=== PATIENT | male | born 1930 | race Caucasian/White ===

== ENCOUNTER → 2016-04-19 | Outpatient (CLI) | payer MEDICARE, BC ==
[2016-04-19 08:39] LABS: Anion Gap 10 mmol/L; Blood Urea Nitrogen 24 mg/dL (9-20); Calcium 10.4 mg/dL (8.4-10.2); Carbon Dioxide 26 mmol/L (22-30); Chloride 107 mmol/L (98-107); Glucose 121 mg/dL (74-99); Non-African American GFR(MDRD) 60 (>60 ml/min/1.73 sqM); Potassium 4.6 mmol/L (3.5-5.1); Sodium 143 mmol/L (137-145)
[2016-04-19 11:09] LABS: Hemoglobin A1C 6.1 % (4.2-6.1)
== END | disposition home or self-care (01) ==
LOC: LABWHC1 06:48
PROVIDERS: ATTEND Internal Medicine Endocrinology, Diabetes & Metabolism
DX: E11.9 Type 2 diabetes mellitus without complications (principal)
CPT/HCPCS: 36415; 80048; 83036

== ENCOUNTER → 2016-11-06 | Outpatient (CLI) | payer MEDICARE, BC | END | disposition home or self-care (01) | LOC: LABWHC1 11:06 | PROVIDERS: ATTEND Internal Medicine Endocrinology, Diabetes & Metabolism | DX: R53.83 Other fatigue (principal) | CPT/HCPCS: 36415; 83002; 84403; 84443 ==

== ENCOUNTER → 2017-06-13 | Outpatient (CLI) | payer MEDICARE, BC ==
[2017-06-13 07:45] LABS: Albumin 4.3 g/dL (3.5-5.0); Calcium 10.1 mg/dL (8.4-10.2); Potassium 4.1 mmol/L (3.5-5.1); Total Bilirubin 0.7 mg/dL (0.2-1.3)
[2017-06-13 12:02] LABS: Hemoglobin A1C 5.8 % (4.0-6.0)
== END | disposition home or self-care (01) ==
LOC: LABWHC1 06:37
PROVIDERS: ATTEND Internal Medicine Endocrinology, Diabetes & Metabolism
DX: E11.65 Type 2 diabetes mellitus with hyperglycemia (principal)
CPT/HCPCS: 36415; 80053; 80061; 82043; 82570; 83036

== ENCOUNTER → 2017-06-21 | Outpatient (CLI) | payer MEDICARE, BC | END | disposition home or self-care (01) | LOC: LABWHC1 13:56 | PROVIDERS: ATTEND Internal Medicine Endocrinology, Diabetes & Metabolism | DX: E11.65 Type 2 diabetes mellitus with hyperglycemia (principal) | CPT/HCPCS: 36415; 84403 ==

== ENCOUNTER → 2017-10-05 | Outpatient (CLI) | payer MEDICARE, BC ==
[2017-10-05 13:57] LABS: HCT 47.8 % (39.0-53.0); HGB 15.9 gm/dL (13.0-17.5); MCH 32.2 pg (25.0-35.0); MCHC 33.3 g/dL (31.0-37.0); MCV 96.8 fL (80.0-100.0); Mean Platelet Volume 7.7; Platelet Count 164 k/uL (150-450); RBC 4.93 m/uL (4.30-5.90); RDW 13.7 % (11.5-15.5); WBC 8.2 k/uL (3.8-10.6)
== END | disposition home or self-care (01) ==
LOC: LABWHC1 13:32
PROVIDERS: ATTEND Internal Medicine Endocrinology, Diabetes & Metabolism
DX: E29.1 Testicular hypofunction (principal)
CPT/HCPCS: 36415; 84153; 84403; 85027

== ENCOUNTER 2017-10-09 10:20 | Emergency (ER) | payer MEDICARE, BC ==
[2017-10-09 10:25] VITALS: BP 139/77; PULSE 52; RESP 16; TEMP 98
--- NOTE | 2017-10-09 11:28 | ED ---
Skin/Abscess/FB HPI <Clay Lew - Last Filed: 10/09/17 11:31> - General Source: patient, RN notes reviewed Mode of arrival: ambulatory Limitations: no limitations <Subha Kirk - Last Filed: 10/09/17 11:59> - General Chief complaint: Skin/Abscess/Foreign Body Stated complaint: Spider bite on hand Time Seen by Provider: 10/09/17 10:35 - History of Present Illness Initial comments: This is an 87-year-old male who presents to the emergency department with chief complaint of spider bite. Patient states that on Sunday afternoon he saw a large black spider on his right hand. Patient states that he hit the spider but does not recall it biting him. He states that on Sunday he noticed tenderness, redness and swelling to the right hand. He said that at that point he realized the spider had indeed bit him. Patient states that today after taking a shower he noticed that there was a black lesion on his right hand. Patient denies any recent fevers or chills, chest pain shortness of breath, abdominal pain, nausea or vomiting. He denies any significant pain. (Subha Kirk) - Related Data Home Medications Medication Instructions Recorded Confirmed Furosemide [Lasix] 40 mg PO DAILY 03/29/15 10/09/17 amLODIPine BESYLATE [Norvasc] 10 mg PO DAILY 03/29/15 10/09/17 glipiZIDE [Glucotrol] 5 mg PO BID 03/29/15 10/09/17 Losartan Potassium 100 mg PO DAILY 10/09/17 10/09/17 Potassium Chloride ER [K-Dur 10] 10 meq PO DAILY 10/09/17 10/09/17 Previous Rx's Medication Instructions Recorded Cephalexin [Keflex] 500 mg PO Q12HR #14 cap 10/09/17 Sulfamethox-Tmp 800-160Mg [Bactrim 1 tab PO Q12HR #14 tab 10/09/17 DS 800-160 mg] Allergies Allergy/AdvReac Type Severity Reaction Status Date / Time No Known Allergies Allergy Verified 10/09/17 11:15 Review of Systems ROS Other: All systems not noted in ROS Statement are negative. <Clay Lew - Last Filed: 10/09/17 11:31> ROS Other: All systems not noted in ROS Statement are negative. <Subha Kirk - Last Filed: 10/09/17 11:59> ROS Statement: Those systems with pertinent positive or pertinent negative responses have been documented in the HPI. Past Medical History Past Medical History: Cancer, Diabetes Mellitus, Hypertension Additional Past Medical History / Comment(s): Skin CA History of Any Multi-Drug Resistant Organisms: None Reported Past Surgical History: Hernia Repair Additional Past Surgical History / Comment(s): Vasc. surg R leg; Hammer toes Past Anesthesia/Blood Transfusion Reactions: No Reported Reaction, Blood Transfusion Reaction Past Psychological History: No Psychological Hx Reported Smoking Status: Never smoker Past Alcohol Use History: None Reported Past Drug Use History: None Reported - Past Family History Mother Family Medical History: No Reported History <Subha Kirk - Last Filed: 10/09/17 11:59> General Exam <VipinClay - Last Filed: 10/09/17 11:31> Limitations: no limitations <Subha Kirk Hernandez - Last Filed: 10/09/17 11:59> - General Exam Comments Initial Comments: General: Awake and alert, well-developed; in no apparent distress. 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 HEENT: Head atraumatic, normocephalic. Pupils are equal, round and reactive to light. Extraocular movements intact. Oropharynx moist without erythema or exudate. Neck: Supple. Normal ROM. Cardiovascular: Regular rate and rhythm. No murmurs, rubs or gallops. Chest symmetrical. Respiratory: Lungs clear to auscultation bilaterally. No wheezes, rales or rhonchi. Normal respiratory effort with no use of accessory muscles. Musculoskeletal: Normal range of motion of the right hand. Dorsal aspect of the right hand has 2+ pitting edema and erythema. There is a black nodule or like lesion with surrounding ecchymosis at the webbing between his fingers 1 and 2 on the right hand. Sensation is intact. Radial pulses are 2+ equal and palpable bilaterally. Skin: Zap, warm and dry without rashes or lesions. Neurological: Alert and oriented x3. CN II-XII grossly intact. Speech is fluent and answers are appropriate. No focal neuro deficits. Psychiatric: Normal mood and affect. No overt signs of depression or anxiety noted. (Subha Kirk) Course <VipinClay - Last Filed: 10/09/17 11:31> <Subha Kirk - Last Filed: 10/09/17 11:59> Vital Signs 10/09/17 10:23 Temperature 98 F Pulse Rate 52 L Respiratory 16 Rate Blood Pressure 139/77 O2 Sat by Pulse 96 Oximetry - Reevaluation(s) Reevaluation #1: 10/09/17 11:31 PA supervision: I personally saw and examined the patient. I reviewed and agree with the PA findings including all diagnostic interpretations and treatment plans is written unless otherwise stated. (Clay Lew) Medical Decision Making <VipinClay - Last Filed: 10/09/17 11:31> <Subha Kirk - Last Filed: 10/09/17 11:59> - Medical Decision Making This is an 87-year-old male who presents to the emergency department with chief complaint of spider bite. Patient reports being bit by spider on Sunday and noticing swelling and redness of the right hand on Sunday. Patient reports noticing a black spot on his hand after taking a shower this morning. On physical examination, there is pitting edema and erythema of the dorsal aspect of the right hand with a nodular-like black lesion between digits 1 and 2. Case was discussed with attending physician, Dr. Lew who also evaluated the patient. Recommended attempting to drain. A 25-gauge needle was inserted into the nodular lesion and only blood was extracted. Patient tolerated well without complication. He will be started on both Keflex and Bactrim. Vitals are stable and he is in no acute distress. He will be discharged home at this time. He is in agreement with plan and voices understanding. All questions were answered. Return parameters were discussed. (Subha Kirk) Disposition <VipinClay - Last Filed: 10/09/17 11:31> Is patient prescribed a controlled substance at d/c from ED?: No Time of Disposition: 11:57 <Subha Kirk - Last Filed: 10/09/17 11:59> Clinical Impression: Cellulitis Disposition: HOME SELF-CARE Condition: Good Instructions: Cellulitis (ED) Additional Instructions: Please take medications as prescribed. Please follow up with primary care provider within 1-2 days. Return to emergency department if symptoms should worsen or any concerns arise. Prescriptions: Cephalexin [Keflex] 500 mg PO Q12HR #14 cap Sulfamethox-Tmp 800-160Mg [Bactrim DS 800-160 mg] 1 tab PO Q12HR #14 tab Referrals: [facility],Clinic [Primary Care Provider] - 1-2 days
[2017-10-09] MEDS ORDERED: CEPHALEXIN 500MG STARTER PACK 4 CAP BTL PO STA (11:53)
[2017-10-09] MEDS ORDERED: CEPHALEXIN 500 MG CAP PO STA (11:53)
[2017-10-09] MEDS ORDERED: SULFAMETH-TMP DS STARTER PACK 2 TAB BTL PO STA (11:54)
[2017-10-09] MEDS ORDERED: SULFAMETHOX-TMP 800-160MG 1 EACH TAB PO STA (11:54)
== END 2017-10-09 12:05 | disposition home or self-care (01) ==
LOC: EC 10:20
DX: L03.113 Cellulitis of right upper limb (principal); E11.9 Type 2 diabetes mellitus without complications; I10 Essential (primary) hypertension; Z85.828 Personal history of other malignant neoplasm of skin; Z79.84 Long term (current) use of oral hypoglycemic drugs; Z79.899 Other long term (current) drug therapy
CPT/HCPCS: 10160; 99283

== ENCOUNTER → 2018-03-05 | Outpatient (CLI) | payer MEDICARE, BC | END | disposition home or self-care (01) | LOC: LABWHC1 14:56 | PROVIDERS: ATTEND Internal Medicine Endocrinology, Diabetes & Metabolism | DX: E29.1 Testicular hypofunction (principal) | CPT/HCPCS: 36415; 83002; 84403 ==

== ENCOUNTER → 2018-06-19 | Outpatient (CLI) | payer MEDICARE, BC | END | disposition home or self-care (01) | LOC: LABWHC1 15:20 | PROVIDERS: ATTEND Internal Medicine Endocrinology, Diabetes & Metabolism | DX: E29.1 Testicular hypofunction (principal) | CPT/HCPCS: 36415; 84403 ==

== ENCOUNTER → 2018-06-21 | Outpatient (CLI) | payer MEDICARE, BC ==
[2018-06-21 11:19] LABS: Anion Gap 7.3 mmol/L (4.00-12.00); Calcium 9.8 mg/dL (8.7-10.3); Carbon Dioxide 27.7 mmol/L (21.6-31.8); Potassium 4.4 mmol/L (3.5-5.5)
== END ==
LOC: LABWHC1 06:43
PROVIDERS: ATTEND Internal Medicine Cardiovascular Disease
DX: N19 Unspecified kidney failure (principal); E11.9 Type 2 diabetes mellitus without complications; I10 Essential (primary) hypertension
CPT/HCPCS: 36415; 80048

== ENCOUNTER → 2019-02-26 | Outpatient (CLI) | payer MEDICARE, BC ==
[2019-02-26 16:34] LABS: African American GFR (CKD) 57.3 (60.0-200.0); Albumin 4.2 g/dL (3.80-4.90); Albumin/Globulin Ratio 2.21 (1.60-3.17); Anion Gap 8.7 mmol/L (4.00-12.00); BUN/Creat Ratio 19.23 Ratio (12.00-20.00); Calcium 9.9 mg/dL (8.7-10.3); Carbon Dioxide 25.3 mmol/L (21.6-31.8); Chol/HDL Ratio 3.83; Globulin 1.9 g/dL (1.6-3.3); LDL Cholesterol,Calculated 96.2 mg/dL (0.0-131.0); Non-African American GFR(CKD) 49.4 (60.0-200.0); Potassium 4.5 mmol/L (3.5-5.5); Total Bilirubin 0.8 mg/dL (0.3-1.2); Total Protein 6.1 g/dL (6.2-8.2); VLDL Calculation 22.8 mg/dL (5.00-40.00)
[2019-02-26 19:02] LABS: Urine Creatinine 65.9 mg/dL
[2019-02-26 21:25] LABS: Hemoglobin A1C 6.3 % (4.0-6.0)
== END | disposition home or self-care (01) ==
LOC: LABWHC1 09:14
PROVIDERS: ATTEND Internal Medicine Endocrinology, Diabetes & Metabolism
DX: E11.9 Type 2 diabetes mellitus without complications (principal)
CPT/HCPCS: 36415; 80053; 80061; 82043; 82570; 83036; 84403; 84443

== ENCOUNTER → 2019-12-03 | Outpatient (CLI) | payer MEDICARE, BC ==
[2019-12-03 20:21] LABS: Urine Creatinine 52.6 mg/dL
[2019-12-03 21:31] LABS: African American GFR (CKD) 62.6 (60.0-200.0); Albumin 4.4 g/dL (3.80-4.90); Albumin/Globulin Ratio 1.91 (1.60-3.17); Anion Gap 7.4 mmol/L (4.00-12.00); Calcium 10.7 mg/dL (8.7-10.3); Carbon Dioxide 25.6 mmol/L (21.6-31.8); Chol/HDL Ratio 3.88; Globulin 2.3 g/dL (1.6-3.3); LDL Cholesterol,Calculated 103.2 mg/dL (0.0-131.0); Potassium 4.9 mmol/L (3.5-5.5); Total Bilirubin 0.6 mg/dL (0.3-1.2); Total Protein 6.7 g/dL (6.2-8.2); VLDL Calculation 20.8 mg/dL (5.00-40.00)
== END | disposition home or self-care (01) ==
LOC: LABWHC1 11:40
PROVIDERS: ATTEND Internal Medicine Endocrinology, Diabetes & Metabolism
DX: E11.40 Type 2 diabetes mellitus with diabetic neuropathy, unspecified (principal)
CPT/HCPCS: 36415; 80053; 80061; 82043; 82570; 84403; 84443

== ENCOUNTER → 2021-02-21 | Outpatient (CLI) | payer MEDICARE, BC ==
[2021-02-21 20:37] LABS: ALT 23 U/L (10-49); AST 20 U/L (14-35); African American GFR (CKD) 67.6 (60.0-200.0); Albumin 3.8 g/dL (3.8-4.9); Albumin/Globulin Ratio 1.75 (1.60-3.17); Alkaline Phosphatase 79 U/L (41-126); BUN/Creat Ratio 18.75 Ratio (12.00-20.00); Calcium 9.9 mg/dL (8.7-10.3); Carbon Dioxide 22.3 mmol/L (20.0-27.5); Chloride 110 mmol/L (96-109); Chol/HDL Ratio 4.19 Ratio; Globulin 2.2 g/dL (1.6-3.3); Glucose 122 mg/dL (70-110); LDL Cholesterol,Calculated 122.7 mg/dL (0.0-131.0); Non-African American GFR(CKD) 58.3 (60.0-200.0); Potassium 4.4 mmol/L (3.5-5.5); Sodium 142 mmol/L (135-145)
== END | disposition home or self-care (01) ==
LOC: LABWHC1 10:20
PROVIDERS: ATTEND Internal Medicine Endocrinology, Diabetes & Metabolism
DX: E11.65 Type 2 diabetes mellitus with hyperglycemia (principal)
CPT/HCPCS: 36415; 80053; 80061; 82043; 82570; 83036; 84443

== ENCOUNTER 2021-08-06 08:40 | Emergency (ER) | payer MEDICARE, BC ==
[2021-08-06 08:47] VITALS: BP 129/78; PULSE 76; RESP 16; TEMP 98.3
--- NOTE | 2021-08-06 08:57 | ED ---
General Adult HPI - General Chief complaint: Extremity Injury, Lower Stated complaint: hip pain Time Seen by Provider: 08/06/21 08:42 Source: patient Mode of arrival: ambulatory Limitations: no limitations - History of Present Illness Initial comments: Dictation was produced using [employer] dictation software. please excuse any grammatical, word or spelling errors. Chief Complaint: 89-year-old male presents emergency department for right-sided hip pain History of Present Illness: Patient is an 89-year-old male who presents to emergency department for right-sided hip pain. Patient states he fell 3 months ago carrying a heavy object. At that time he felt his left knee gave out and he fell on his right side. For the past 3 months since a fall he's been having some mild pain towards his upper right hip. Patient states that he has been able to ambulate though not as well secondary to the pain. States that he kept putting office and finally decided today came to the emergency department to be evaluated. Denies any focal paresthesias to his right lower extremity The ROS documented in this emergency department record has been reviewed and confirmed by me. Those systems with pertinent positive or negative responses have been documented in the HPI. All other systems are other negative and/or noncontributory. PHYSICAL EXAM: General Impression: Alert and oriented x3, not in acute distress HEENT: Normocephalic atraumatic, extra-ocular movements intact, pupils equal and reactive to light bilaterally, mucous membranes moist. Cardiovascular: Heart regular rate and rhythm Chest: Able to complete full sentences, no retractions, no tachypnea Abdomen: abdomen soft, non-tender, non-distended, no organomegaly Musculoskeletal: Pulses present and equal in all extremities, no peripheral edema, no gait abnormalities Motor: no focal deficits noted Neurological: CN II-XII grossly intact, no focal motor or sensory deficits noted Skin: Intact with no visualized rashes Psych: Normal affect and mood ED course: 89-year-old male presents to the emergency department for hip pain that he's been expressing for the last 3 months. Vital signs upon arrival are within acceptable limits. Hip x-ray shows no acute fracture dislocation. There does appear to be some joint space narrowing. Advised follow-up with primary care doctor. Patient requesting steroids. Patient given an IM injection of Decadron. - Related Data Home Medications Medication Instructions Recorded Confirmed Furosemide [Lasix] 40 mg PO DAILY 03/29/15 10/09/17 amLODIPine BESYLATE [Norvasc] 10 mg PO DAILY 03/29/15 10/09/17 glipiZIDE [Glucotrol] 5 mg PO BID 03/29/15 10/09/17 Losartan Potassium 100 mg PO DAILY 10/09/17 10/09/17 Potassium Chloride ER [K-Dur 10] 10 meq PO DAILY 10/09/17 10/09/17 Previous Rx's Medication Instructions Recorded Cephalexin [Keflex] 500 mg PO Q12HR #14 cap 10/09/17 Sulfamethox-Tmp 800-160Mg [Bactrim 1 tab PO Q12HR #14 tab 10/09/17 DS 800-160 mg] Allergies Allergy/AdvReac Type Severity Reaction Status Date / Time No Known Allergies Allergy Verified 08/06/21 08:47 Review of Systems ROS Statement: Those systems with pertinent positive or pertinent negative responses have been documented in the HPI. ROS Other: All systems not noted in ROS Statement are negative. Past Medical History Past Medical History: Cancer, Diabetes Mellitus, Hypertension Additional Past Medical History / Comment(s): Skin CA History of Any Multi-Drug Resistant Organisms: None Reported Past Surgical History: Hernia Repair Additional Past Surgical History / Comment(s): Vasc. surg R leg; Hammer toes Past Anesthesia/Blood Transfusion Reactions: No Reported Reaction, Blood Transfusion Reaction Past Psychological History: No Psychological Hx Reported Past Alcohol Use History: None Reported Past Drug Use History: None Reported - Past Family History Mother Family Medical History: No Reported History General Exam Limitations: no limitations Course Vital Signs 08/06/21 08:42 Temperature 98.3 F Pulse Rate 76 Respiratory 16 Rate Blood Pressure 129/78 O2 Sat by Pulse 96 Oximetry Disposition Clinical Impression: Hip pain Disposition: HOME SELF-CARE Condition: Good Instructions (If sedation given, give patient instructions): Hip Pain (ED) Is patient prescribed a controlled substance at d/c from ED?: No Referrals: [facility],Clinic [Primary Care Provider] - 1-2 days Time of Disposition: 09:35
--- NOTE | 2021-08-06 09:15 | XR ---
EXAMINATION TYPE: XR Hip Complete RT DATE OF EXAM: 08/06/2021 CLINICAL HISTORY: pain TECHNIQUE: AP and frogleg views of the right hip are obtained. COMPARISON: None. FINDINGS: There is no acute fracture/dislocation evident. The joint space appears moderately narro wed. The overlying soft tissue appears unremarkable. IMPRESSION: 1. There is no acute fracture or dislocation. ICD 10 NO FRACTURE, INITIAL EVALUATION
[2021-08-06] MEDS ORDERED: DEXAMETHASONE SOD PHOSPHATE 10 MG/ML 1 ML VIAL IM STA (09:35)
== END 2021-08-06 09:45 | disposition home or self-care (01) ==
LOC: EC 08:40
DX: M25.551 Pain in right hip (principal); E11.9 Type 2 diabetes mellitus without complications; I10 Essential (primary) hypertension; Z79.84 Long term (current) use of oral hypoglycemic drugs; Z79.899 Other long term (current) drug therapy
CPT/HCPCS: 73502; 99283; 96372; J1100

== ENCOUNTER 2021-12-07 14:18 | Emergency (ER) | payer MEDICARE, BC ==
[2021-12-07 15:21] VITALS: BP 139/69; TEMP 97.7
--- NOTE | 2021-12-07 15:37 | ED ---
General Adult HPI - General Chief complaint: Upper Respiratory Infection Stated complaint: cold Time Seen by Provider: 12/07/21 15:23 Source: patient, RN notes reviewed, old records reviewed Mode of arrival: ambulatory Limitations: no limitations - History of Present Illness Initial comments: 89-year-old male presenting with 1 week of cough and cold symptoms. Patient states he did have some testing performed by primary care physician but is uncertain exactly what this was. Apparently he had been contacted and told to come to the emergency department. He has no chest pain. No difficulty breathing. He denies current fever. - Related Data Home Medications Medication Instructions Recorded Confirmed Furosemide [Lasix] 40 mg PO DAILY 03/29/15 10/09/17 amLODIPine BESYLATE [Norvasc] 10 mg PO DAILY 03/29/15 10/09/17 glipiZIDE [Glucotrol] 5 mg PO BID 03/29/15 10/09/17 Losartan Potassium 100 mg PO DAILY 10/09/17 10/09/17 Potassium Chloride ER [K-Dur 10] 10 meq PO DAILY 10/09/17 10/09/17 Previous Rx's Medication Instructions Recorded Cephalexin [Keflex] 500 mg PO Q12HR #14 cap 10/09/17 Sulfamethox-Tmp 800-160Mg [Bactrim 1 tab PO Q12HR #14 tab 10/09/17 DS 800-160 mg] Allergies Allergy/AdvReac Type Severity Reaction Status Date / Time No Known Allergies Allergy Verified 08/06/21 08:47 Review of Systems ROS Statement: Those systems with pertinent positive or pertinent negative responses have been documented in the HPI. ROS Other: All systems not noted in ROS Statement are negative. Past Medical History Past Medical History: Cancer, Diabetes Mellitus, Hypertension Additional Past Medical History / Comment(s): Skin CA History of Any Multi-Drug Resistant Organisms: None Reported Past Surgical History: Hernia Repair Additional Past Surgical History / Comment(s): Vasc. surg R leg; Hammer toes Past Anesthesia/Blood Transfusion Reactions: No Reported Reaction, Blood Transfusion Reaction Past Psychological History: No Psychological Hx Reported Past Alcohol Use History: None Reported Past Drug Use History: None Reported - Past Family History Mother Family Medical History: No Reported History General Exam Limitations: no limitations General appearance: alert, in no apparent distress Head exam: Present: atraumatic, normocephalic Eye exam: Present: normal appearance, PERRL ENT exam: Present: normal exam Neck exam: Present: normal inspection Respiratory exam: Present: normal lung sounds bilaterally. Absent: respiratory distress, wheezes Cardiovascular Exam: Present: normal rhythm, bradycardia GI/Abdominal exam: Present: soft. Absent: distended, tenderness, guarding Extremities exam: Present: normal inspection, normal capillary refill Neurological exam: Present: alert, oriented X3, CN II-XII intact. Absent: motor sensory deficit Psychiatric exam: Present: normal affect, normal mood Skin exam: Present: warm, dry, intact. Absent: cyanosis, diaphoretic Course Vital Signs 12/07/21 15:17 Temperature 97.7 F Pulse Rate 48 L Respiratory 20 Rate Blood Pressure 139/69 O2 Sat by Pulse 95 Oximetry Medical Decision Making - Medical Decision Making 89-year-old male with cough and cold symptoms for the last 1 week. Patient well-appearing, no respiratory distress, x-ray shows hiatal hernia, no focal pneumonia, no acute findings. Patient has had symptoms for one week and does not qualify for oral antivirals at this time. He should take vitamin C, zinc, and vitamin D. Should follow with his primary care physician.`````````````````````````` - Lab Data Lab Results 12/07/21 Range/Units 15:40 Coronavirus (PCR) Detected A (Not Detectd) Disposition Clinical Impression: COVID-19 Disposition: HOME SELF-CARE Condition: Fair Instructions (If sedation given, give patient instructions): COVID-19 (Coronavirus Disease 2019) (ED) Is patient prescribed a controlled substance at d/c from ED?: No Referrals: [facility],Clinic [REFERRING] - 1-2 days Time of Disposition: 16:50
--- NOTE | 2021-12-07 16:44 | XR ---
EXAMINATION TYPE: XR chest 2V DATE OF EXAM: 12/07/2021 COMPARISON: 05/09/2011 HISTORY: Cough TECHNIQUE: FINDINGS: Heart appears enlarged. There is large hiatal hernia. Lungs are clear of infiltrate. No ple ural effusion. No heart failure. The bony thorax is intact. IMPRESSION: No active cardiopulmonary disease. Hiatal hernia. No change compared to old exam.
[2021-12-07 17:09] VITALS: PULSE 54; RESP 18
== END 2021-12-07 17:08 | disposition home or self-care (01) ==
LOC: EC 14:18
DX: U07.1 COVID-19 (principal); I10 Essential (primary) hypertension; E11.9 Type 2 diabetes mellitus without complications; Z79.811 Long term (current) use of aromatase inhibitors; Z79.899 Other long term (current) drug therapy
CPT/HCPCS: 71046; 87635; 99283

== ENCOUNTER → 2021-12-20 | Outpatient (CLI) | payer MEDICARE, BC ==
[2021-12-20 14:45] LABS: African American GFR (CKD) 52.2 (60.0-200.0); Albumin/Globulin Ratio 1.76 (1.60-3.17); BUN/Creat Ratio 14.57 Ratio (12.00-20.00); Blood Urea Nitrogen 20.1 mg/dL (9.0-27.0); Calcium 10.2 mg/dL (8.7-10.3); Carbon Dioxide 25.7 mmol/L (20.0-27.5); Globulin 2.3 g/dL (1.6-3.3); Potassium 4.3 mmol/L (3.5-5.5); Total Bilirubin 0.3 mg/dL (0.30-1.20); Total Protein 6.3 g/dL (6.2-8.2)
== END | disposition home or self-care (01) ==
LOC: LABWHC1 07:03
PROVIDERS: ATTEND Internal Medicine Endocrinology, Diabetes & Metabolism
DX: E11.65 Type 2 diabetes mellitus with hyperglycemia (principal); E29.1 Testicular hypofunction
CPT/HCPCS: 36415; 80053; 83036; 84403

== ENCOUNTER 2022-02-17 09:27 | Inpatient (IN) | payer MEDICARE, BC ==
[2022-02-17 09:39] VITALS: TEMP 98.4
[2022-02-17] MEDS ORDERED: DILTIAZEM DRIP BOLUS FROM BAG 1 MG SOLN IV ONE (10:11)
--- NOTE | 2022-02-17 10:15 | ED ---
General Adult HPI - General Chief complaint: Arrhythmia/Palpitations Stated complaint: tachycardia - sent by parts cleaner Time Seen by Provider: 02/17/22 09:45 Source: patient, RN notes reviewed, old records reviewed Mode of arrival: ambulatory Limitations: no limitations - History of Present Illness Initial comments: This is an 89-year-old male who presents emergency Department with a past medical history significant for an irregular heartbeat. Patient states she's on metoprolol and eliquis for. Patient states he took his medications this morning but he noticed heart rate is over 130 suicidal he comes emergency department. Patient denies feeling any palpitations. Patient denies any chest pain difficulty breathing shortness of breath. Patient states last 2 days had a cold but is not please had any fever chills per patient denies abdominal pain patient denies nausea vomiting or diarrhea. Patient denies headache. Patient denies any numbness weakness. - Related Data Home Medications Medication Instructions Recorded Confirmed Furosemide [Lasix] 40 mg PO DAILY 03/29/15 02/17/22 amLODIPine BESYLATE [Norvasc] 10 mg PO DAILY 03/29/15 02/17/22 glipiZIDE [Glucotrol] 5 mg PO BID 03/29/15 02/17/22 Losartan Potassium 100 mg PO DAILY 10/09/17 02/17/22 Potassium Chloride ER [K-Dur 10] 10 meq PO DAILY 10/09/17 02/17/22 Apixaban [Eliquis] 2.5 mg PO BID 02/17/22 02/17/22 Doxazosin [Cardura] 2 mg PO DAILY 02/17/22 02/17/22 Gabapentin 300 mg PO BID 02/17/22 02/17/22 Metoprolol Succinate (ER) [Toprol 50 mg PO DAILY 02/17/22 02/17/22 Xl] Allergies Allergy/AdvReac Type Severity Reaction Status Date / Time No Known Allergies Allergy Verified 02/17/22 10:54 Review of Systems ROS Statement: Those systems with pertinent positive or pertinent negative responses have been documented in the HPI. ROS Other: All systems not noted in ROS Statement are negative. Past Medical History Past Medical History: Cancer, Diabetes Mellitus, Hypertension Additional Past Medical History / Comment(s): Skin CA History of Any Multi-Drug Resistant Organisms: None Reported Past Surgical History: Hernia Repair Additional Past Surgical History / Comment(s): Vasc. surg R leg; Hammer toes Past Anesthesia/Blood Transfusion Reactions: No Reported Reaction, Blood Transfusion Reaction Past Psychological History: No Psychological Hx Reported Smoking Status: Never smoker Past Alcohol Use History: None Reported Past Drug Use History: None Reported - Past Family History Mother Family Medical History: No Reported History General Exam - General Exam Comments Initial Comments: GENERAL: Patient is well-developed and well-nourished. Patient is nontoxic and well- hydrated and is in mild distress. ENT: Neck is soft and supple. No significant lymphadenopathy is noted. Oropharynx is clear. Moist mucous membranes. Neck has full range of motion without eliciting any pain. EYES: The sclera were anicteric and conjunctiva were pink and moist. Extraocular movements were intact and pupils were equal round and reactive to light. Eyelids were unremarkable. PULMONARY: Unlabored respirations. Good breath sounds bilaterally. No audible rales rhonchi or wheezing was noted. CARDIOVASCULAR: Patient is tachycardic at about 130 ABDOMEN: Soft and nontender with normal bowel sounds. SKIN: Skin is clear with no lesions or rashes and otherwise unremarkable. NEUROLOGIC: Patient is alert and oriented x3. Cranial nerves II through XII are grossly intact. Motor and sensory are also intact. Normal speech, volume and content. Symmetrical smile. MUSCULOSKELETAL: Normal extremities with adequate strength and full range of motion. No lower extremity swelling or edema. No calf tenderness. LYMPHATICS: No significant lymphadenopathy is noted PSYCHIATRIC: Normal psychiatric evaluation. Limitations: no limitations Course Vital Signs 02/17/22 02/17/22 02/17/22 09:35 11:02 11:30 Temperature 98.4 F Pulse Rate 142 H 86 74 Respiratory 22 23 22 Rate Blood Pressure 119/72 131/91 131/91 O2 Sat by Pulse 96 95 93 L Oximetry 02/17/22 02/17/22 02/17/22 12:00 12:30 13:00 Temperature Pulse Rate 88 89 92 Respiratory 20 23 22 Rate Blood Pressure 116/92 134/83 137/85 O2 Sat by Pulse 94 L 92 L 90 L Oximetry Medical Decision Making - Medical Decision Making EKG was interpreted by myself. EKG shows atrial flutter at a rate of 132 bpm QRS is under 43 QT interval 302 QTC is 380. Patient's EKG shows no ST segment elevation or visit slight ST segment depression in precordial leads V4 through V6. Was pt. sent in by a medical professional or institution (, [facility], [facility], urgent care, hospital, or [facility]...) When possible be specific @ -No Did you speak to anyone other than the patient for history (EMS, parent, family, police, friend...)? What history was obtained from this source @ -No Did you review nursing and triage notes (agree or disagree)? Why? @ -I reviewed and agree with nursing and triage notes Were old charts reviewed (outside hosp., previous admission, EMS record, old EKG, old radiological studies, urgent care reports/EKG's, [facility] records)? Report findings @ -No old charts were reviewed Differential Diagnosis (chest pain, altered mental status, abdominal pain women, abdominal pain men, vaginal bleeding, weakness, fever, dyspnea, syncope, headache, dizziness, GI bleed, back pain, seizure, CVA, palpatations, mental health)? @ -M.D. M differential palpitations EKG interpreted by me (3pts min.). @ -As above X-rays interpreted by me (1pt min.). @ -Chest x-ray was interpreted by myself is on no acute abnormality CT interpreted by me (1pt min.). @ -None done U/S interpreted by me (1pt. min.). @ -None done What testing was considered but not performed or refused? (CT, X-rays, U/S, labs)? Why? @ -I considered doing a CT of the chest rule out PE however the patient had a history of atrial fibrillation and patient had RSV What meds were considered but not given or refused? Why? @ -None Did you discuss the management of the patient with other professionals (professionals i.e. , [facility], [facility], lab, RT, psych nurse, 7th grade social studies teacher, magazine repairer, teacher, information security officer, manager of case)? Give summary @ -I spoke with Dr. Velazquez he agreed to admit the patient admitted the patient wrote admitting orders. Was smoking cessation discussed for >3mins.? @ -No Was critical care preformed (if so, how long)? @ -Critical care time was 35 minutes. Patient was started on calcium channel aileen Cardizem and had a Cardizem bolus as well Were there social determinants of health that impacted care today? How? (Homelessness, low income, unemployed, alcoholism, drug addiction, transportation, low edu. Level, literacy, decrease access to med. care, residential, rehab)? @ -No Was there de-escalation of care discussed even if they declined (Discuss DNR or withdrawal of care, Hospice)? DNR status @ -No What co-morbidities impacted this encounter? (DM, HTN, Smoking, COPD, CAD, Cancer, CVA, ARF, Chemo, Hep., AIDS, mental health diagnosis, sleep apnea, morbid obesity)? @ -None Was patient admitted / discharged? Hospital course, mention meds given and r oute, prescriptions, significant lab abnormalities, going to OR and other pertinent info. @ -Patient was admitted to the hospital for atrial fibrillation with rapid ventricular response. Patient was started on a Cardizem drip and was given a Cardizem bolus initially. Patient was put on anticoagulants because he was ready on eliquis. Patient's heart slow down sufficiently. I spoke with Dr. Velazquez he agreed to admit the patient admitted the patient wrote admitting orders. Patient also has RSV of the chest x-ray looked clear Undiagnosed new problem with uncertain prognosis? @ -No Drug Therapy requiring intensive monitoring for toxicity (Heparin, Nitro, Insulin, Cardizem)? @ -No Were any procedures done? @ -No Diagnosis/symptom? @ -A. fib with rapid ventricular response Acute, or Chronic, or Acute on Chronic? @ -Acute chronic Uncomplicated (without systemic symptoms) or Complicated (systemic symptoms)? @ -Complicated Side effects of treatment? @ -No Exacerbation, Progression, or Severe Exacerbation? @ -No Poses a threat to life or bodily function? How? (Chest pain, [place], MT, pneumonia, PE, COPD, DKA, ARF, appy, cholecystitis, CVA, Diverticulitis, Homicidal, Suicidal, threat to staff... and all critical care pts) @ -Yes. A. fib with rapid ventricular response can lead to hypoperfusion Diagnosis/symptom? @ -RSV Acute, or Chronic, or Acute on Chronic? @ -Acute Uncomplicated (without systemic symptoms) or Complicated (systemic symptoms)? @ -Complicated Side effects of treatment? @ -none Exacerbation, Progression, or Severe Exacerbation] @ -no Poses a threat to life or bodily function? @ -no - Lab Data Result diagrams: 02/17/22 10:26 02/17/22 10:26 Lab Results 02/17/22 02/17/22 02/17/22 Range/Units 10:26 10:26 10:26 WBC 9.2 (3.8-10.6) k/uL RBC 5.06 (4.30-5.90) m/uL Hgb 16.2 (13.0-17.5) gm/dL Hct 48.6 (39.0-53.0) % MCV 96.0 (80.0-100.0) fL MCH 32.1 (25.0-35.0) pg MCHC 33.4 (31.0-37.0) g/dL RDW 13.7 (11.5-15.5) % Plt Count 132 L (150-450) k/uL MPV 9.1 Neutrophils % 82 % Lymphocytes % 7 % Monocytes % 7 % Eosinophils % 1 % Basophils % 2 % Neutrophils # 7.6 (1.3-7.7) k/uL Lymphocytes # 0.6 L (1.0-4.8) k/uL Monocytes # 0.7 (0-1.0) k/uL Eosinophils # 0.1 (0-0.7) k/uL Basophils # 0.2 (0-0.2) k/uL PT 10.7 (9.0-12.0) sec INR 1.0 (<1.2) APTT 26.1 (22.0-30.0) sec Sodium 140 (137-145) mmol/L Potassium 4.3 (3.5-5.1) mmol/L Chloride 105 (98-107) mmol/L Carbon Dioxide 26 (22-30) mmol/L Anion Gap 9 mmol/L BUN 20 (9-20) mg/dL Creatinine 1.25 (0.66-1.25) mg/dL Est GFR (CKD-EPI)AfAm 59 (>60 ml/min/1.73 sqM) Est GFR (CKD-EPI)NonAf 51 (>60 ml/min/1.73 sqM) Glucose 130 H (74-99) mg/dL Calcium 10.1 (8.4-10.2) mg/dL Magnesium 1.9 (1.6-2.3) mg/dL Total Bilirubin 1.1 (0.2-1.3) mg/dL AST 29 (17-59) U/L ALT 20 (4-49) U/L Alkaline Phosphatase 102 (38-126) U/L Troponin I (0.000-0.034) ng/mL NT-Pro-B Natriuret Pep pg/mL Total Protein 7.6 (6.3-8.2) g/dL Albumin 4.6 (3.5-5.0) g/dL TSH 1.060 (0.465-4.680) mIU/L Influenza Type A (PCR) (Not Detectd) Influenza Type B (PCR) (Not Detectd) RSV (PCR) (Not Detectd) SARS-CoV-2 (PCR) (Not Detectd) 02/17/22 02/17/22 02/17/22 Range/Units 10:26 10:26 12:55 WBC (3.8-10.6) k/uL RBC (4.30-5.90) m/uL Hgb (13.0-17.5) gm/dL Hct (39.0-53.0) % MCV (80.0-100.0) fL MCH (25.0-35.0) pg MCHC (31.0-37.0) g/dL RDW (11.5-15.5) % Plt Count (150-450) k/uL MPV Neutrophils % % Lymphocytes % % Monocytes % % Eosinophils % % Basophils % % Neutrophils # (1.3-7.7) k/uL Lymphocytes # (1.0-4.8) k/uL Monocytes # (0-1.0) k/uL Eosinophils # (0-0.7) k/uL Basophils # (0-0.2) k/uL PT (9.0-12.0) sec INR (<1.2) APTT (22.0-30.0) sec Sodium (137-145) mmol/L Potassium (3.5-5.1) mmol/L Chloride (98-107) mmol/L Carbon Dioxide (22-30) mmol/L Anion Gap mmol/L BUN (9-20) mg/dL Creatinine (0.66-1.25) mg/dL Est GFR (CKD-EPI)AfAm (>60 ml/min/1.73 sqM) Est GFR (CKD-EPI)NonAf (>60 ml/min/1.73 sqM) Glucose (74-99) mg/dL Calcium (8.4-10.2) mg/dL Magnesium (1.6-2.3) mg/dL Total Bilirubin (0.2-1.3) mg/dL AST (17-59) U/L ALT (4-49) U/L Alkaline Phosphatase (38-126) U/L Troponin I <0.012 (0.000-0.034) ng/mL NT-Pro-B Natriuret Pep 1590 pg/mL Total Protein (6.3-8.2) g/dL Albumin (3.5-5.0) g/dL TSH (0.465-4.680) mIU/L Influenza Type A (PCR) Not Detected (Not Detectd) Influenza Type B (PCR) Not Detected (Not Detectd) RSV (PCR) Detected A (Not Detectd) SARS-CoV-2 (PCR) Not Detected (Not Detectd) Critical Care Time Critical Care Time: Yes Total Critical Care Time: 35 Disposition Clinical Impression: Atrial fibrillation with rapid ventricular response, RSV (acute bronchiolitis due to respiratory syncytial virus) Disposition: ADMITTED IP TO THIS HOSP Referrals: None,Stated [REFERRING] - 1-2 days Time of Disposition: 14:10
[2022-02-17 10:45] LABS: Basophils # (A) 0.2 k/uL (0-0.2); Basophils % (A) 2 %; Eosinophils # (A) 0.1 k/uL (0-0.7); Eosinophils % (A) 1 %; HCT 48.6 % (39.0-53.0); HGB 16.2 gm/dL (13.0-17.5); Lymphocytes # (A) 0.6 k/uL (1.0-4.8); Lymphocytes % (A) 7 %; MCH 32.1 pg (25.0-35.0); MCHC 33.4 g/dL (31.0-37.0); Mean Platelet Volume 9.1; Monocytes # (A) 0.7 k/uL (0-1.0); Monocytes % (A) 7 %; Neutrophils # (A) 7.6 k/uL (1.3-7.7); Neutrophils % (A) 82 %; Platelet Count 132 k/uL (150-450); RBC 5.06 m/uL (4.30-5.90); RDW 13.7 % (11.5-15.5); WBC 9.2 k/uL (3.8-10.6)
--- NOTE | 2022-02-17 10:54 | XR ---
EXAMINATION TYPE: XR chest 2V DATE OF EXAM: 02/17/2022 10:45 AM COMPARISON: Chest radiographs from 12/07/2021 TECHNIQUE: XR chest 2V Frontal and lateral views of the chest. CLINICAL INDICATION:Male, 89 years old with history of dysrhythmia; FINDINGS: Lungs/Pleura: There is no evidence of pleural effusion, focal consolidation, or pneumothorax. Linear atelectasis within the right midlung. Chronic senescent prior "changes. Pulmonary vascularity: Unremarkable. Heart/mediastinum: Cardiomediastinal silhouette is unremarkable. Atherosclerotic calcifications are seen in the aorta. Musculoskeletal: No acute osseous pathology. Remote right-sided rib fractures. Other findings: Moderate size hiatal hernia redemonstrated. IMPRESSION: 1. Right midlung linear atelectasis otherwise no acute process. 2. Hiatal hernia.
[2022-02-17] MEDS: DILTIAZEM 125 MG in SODIUM CHLORIDE 0.9% 100 ML IV SCH ×2 (11:00→23:00)
[2022-02-17 11:07] LABS: Albumin 4.6 g/dL (3.5-5.0); Calcium 10.1 mg/dL (8.4-10.2); Magnesium 1.9 mg/dL (1.6-2.3); Potassium 4.3 mmol/L (3.5-5.1); Total Bilirubin 1.1 mg/dL (0.2-1.3); Total Protein 7.6 g/dL (6.3-8.2)
[2022-02-17 11:11] LABS: Partial Thromboplastin Time 26.1 sec (22.0-30.0); Prothrombin Time 10.7 sec (9.0-12.0)
[2022-02-17] MEDS ORDERED: NITROGLYCERIN SL TABS 0.4 MG TAB SUBLINGUAL PRN (15:34)
[2022-02-17] MEDS ORDERED: IPRATROPIUM-ALBUTEROL 3 ML NEB INHALATION STA (16:43)
[2022-02-17] MEDS ORDERED: glipiZIDE 5 MG TAB PO SCH (17:30)
[2022-02-17] MEDS ORDERED: APIXABAN 2.5 MG TABLET PO SCH (21:00)
[2022-02-17] MEDS ORDERED: GABAPENTIN 300 MG CAP PO SCH (21:00)
[2022-02-17] MEDS ORDERED: FUROSEMIDE 40 MG TAB PO SCH (23:00)
[2022-02-17] MEDS ORDERED: DEXTROSE 50% SYRINGE 50 ML IVP PRN ×2 (23:19)
--- NOTE | 2022-02-17 23:22 | P.HPIM ---
History of Present Illness H&P Date: 02/17/22 Chief Complaint: Shortness of breath Patient is a 89-year-old male with a known history of hypertension, diabetes type 2, atrial fibrillation on anticoagulation with Eliquis presents to ER with complaints of shortness of breath and heart racing or fast. He has been having symptoms for the past couple of days. Patient noticed that his heart rate went over 130 and EMS was called. Denied any complaints of chest pain. On admission patient was found to be atrial fibrillation with rapid ventricular rate of 142. Pulse ox 96% on room air. Denies any complaints of fever or chills. No nausea vomiting abdominal pain or diarrhea. No headache or dizziness or lightheadedness. Chest x-ray showed a right midlung linear atelectasis otherwise no acute process. Hiatal hernia. EKG showed atrial fibrillation/flutter with rapid ventricular response. Laboratory data showed WBC 9.2 hemoglobin 16.1 platelets 132 sodium 140 potassium 4.3 chloride 105 bicarb is 26 BUN 20 and creatinine 1.25 and blood sugar is 130 and calcium 10.1 Troponin x3 negative and proBNP 1.90 and RSV PCR detected. Influenza A, B and COVID-19 PCR not detected. Review of Systems Constitutional: Patient denies any fever or chills . Generalized weakness. Abdomen: Patient denied any nausea or vomiting or abd. pain Cardiovascular: No chest pain. Patient does have cough congestion and short of breath no palpitations. Respiratory: patient does have cough congestion and no sputum production. No shortness of breath Neurologic: Patient denied any numbness or tingling headache. Musculoskeletal: Patient denies any complaints of joint swelling or deformity. Skin: Negative Psychiatric: Negative Endocrine: No heat or cold intolerance. No recent weight gain. Genitourinary: No dysuria or hematuria. All other 14 point ROS negative except the above Past Medical History Past Medical History: Cancer, Diabetes Mellitus, Hypertension Additional Past Medical History / Comment(s): Skin CA History of Any Multi-Drug Resistant Organisms: None Reported Past Surgical History: Hernia Repair Additional Past Surgical History / Comment(s): Vasc. surg R leg; Hammer toes Past Anesthesia/Blood Transfusion Reactions: No Reported Reaction, Blood Transfusion Reaction Past Psychological History: No Psychological Hx Reported Smoking Status: Never smoker Past Alcohol Use History: None Reported Past Drug Use History: None Reported - Past Family History Mother Family Medical History: No Reported History Medications and Allergies Home Medications Medication Instructions Recorded Confirmed Type Furosemide [Lasix] 40 mg PO DAILY 03/29/15 02/17/22 History amLODIPine BESYLATE [Norvasc] 10 mg PO DAILY 03/29/15 02/17/22 History glipiZIDE [Glucotrol] 5 mg PO BID 03/29/15 02/17/22 History Losartan Potassium 100 mg PO DAILY 10/09/17 02/17/22 History Potassium Chloride ER [K-Dur 10] 10 meq PO DAILY 10/09/17 02/17/22 History Apixaban [Eliquis] 2.5 mg PO BID 02/17/22 02/17/22 History Doxazosin [Cardura] 2 mg PO DAILY 02/17/22 02/17/22 History Gabapentin 300 mg PO BID 02/17/22 02/17/22 History Metoprolol Succinate (ER) [Toprol 50 mg PO DAILY 02/17/22 02/17/22 History Xl] Allergies Allergy/AdvReac Type Severity Reaction Status Date / Time No Known Allergies Allergy Verified 02/17/22 10:54 Physical Exam Vitals: Vital Signs Temp Pulse Pulse Resp BP Pulse Ox 02/17/22 20:00 130 H 02/17/22 17:35 82 02/17/22 17:27 95 91 L 02/17/22 13:00 92 22 137/85 90 L 02/17/22 12:30 89 23 134/83 92 L 02/17/22 12:00 88 20 116/92 94 L 02/17/22 11:30 74 22 131/91 93 L 02/17/22 11:02 86 23 131/91 95 02/17/22 09:35 98.4 F 142 H 22 119/72 96 Intake and Output 02/17/22 02/17/22 02/17/22 06:59 14:59 22:59 Intake Total 44.083 Balance 44.083 Intake: Intake, IV Titration 44.083 Amount Diltiazem 125 mg In 44.083 Sodium Chloride 0.9% 100 ml @ 5 MG/HR 5 mls/hr IV .Q24H [facility] Rx#:[id number] Other: Weight 97.522 kg PHYSICAL EXAMINATION: Patient is lying in the bed comfortably, no acute distress, awake alert and oriented.. HEENT: Normocephalic. Neck is supple. Pupils reactive. Nostrils clear. Oral cavity is moist. Neck reveals no JVD, carotid bruits, or thyromegaly. CHEST EXAMINATION: Trachea is central. Symmetrical expansion. Bilateral coarse breath sounds. Scattered crackles.. CARDIAC: Normal S1, S2 with no gallops. No murmurs. Irregularly irregular rhythm. ABDOMEN: Soft. Bowel sounds present. Nontender. No organomegaly. No abdominal bruits. Extremities: reveal no edema. No clubbing or cyanosis Neurologically awake, alert, oriented x3 with well-coordinated movements. No focal deficits noted Skin: No rash or skin lesions. Psychiatric: Coperative. Nonsuicidal, Musculoskeletal: No joint swelling or deformity. Normal range of motion. Results CBC & Chem 7: 02/17/22 10:26 02/17/22 10:26 Labs: Abnormal Lab Results - Last 24 Hours (Table) 02/17/22 02/17/22 02/17/22 Range/Units 10: 10: 12:55 Plt Count 132 L (150-450) k/uL Lymphocytes # 0.6 L (1.0-4.8) k/uL Glucose 130 H (74-99) mg/dL RSV (PCR) Detected A (Not Detectd) Thrombosis Risk Factor Assmnt - DVT/VTE Prophylaxis DVT/VTE Prophylaxis: Pharmacologic Prophylaxis ordered Assessment and Plan Assessment: Atrial fibrillation with rapid ventricular rate Acute RSV infection. Hypertension Diabetes type 2 [id number] Paroxysmal atrial fibrillation on anticoagulation with Eliquis at home History of skin cancer removed Plan: Patient was started on Cardizem drip and continue with telemetry monitoring. Patient will be started back on metoprolol and anticoagulation with Eliquis. Continue with her home blood pressure medications and follow-up closely. Cardiology was consulted. Time with Patient: Greater than 30
[2022-02-18 00:54] VITALS: BP 135/71; PULSE 80; RESP 18
[2022-02-18] MEDS ORDERED: INSULIN ASPART (NovoLOG) 100 UNIT/ML VIAL SQ SCH (07:30)
[2022-02-18] MEDS ORDERED: ASPIRIN 325 MG TAB PO SCH (09:00)
[2022-02-18] MEDS ORDERED: DOXAZOSIN 2 MG TAB PO SCH (09:00)
[2022-02-18] MEDS ORDERED: FUROSEMIDE 40 MG TAB PO SCH (09:00)
[2022-02-18] MEDS ORDERED: METOPROLOL SUCCINATE (ER) 50 MG TAB.ER.24H PO SCH (09:00)
[2022-02-18] MEDS ORDERED: LOSARTAN 50 MG TAB PO SCH (09:00)
[2022-02-18] MEDS ORDERED: amLODIPine 10 MG TAB PO SCH (09:00)
== END 2022-02-18 00:41 | disposition left against medical advice (07) | DRG 309 ==
LOC: EC 09:27 → 1SOBS 15:34 → 3SCARD 16:52
PROVIDERS: ADMIT Internal Medicine; ATTEND Internal Medicine
DX: I48.0 Paroxysmal atrial fibrillation (principal); J98.11 Atelectasis; I48.92 Unspecified atrial flutter; Z53.29 Procedure and treatment not carried out because of patient's decision for other reasons; Z20.822 Contact with and (suspected) exposure to COVID-19; I10 Essential (primary) hypertension; E11.9 Type 2 diabetes mellitus without complications; K44.9 Diaphragmatic hernia without obstruction or gangrene; R00.0 Tachycardia, unspecified; Z66 Do not resuscitate; Z79.01 Long term (current) use of anticoagulants; Z79.84 Long term (current) use of oral hypoglycemic drugs; Z79.899 Other long term (current) drug therapy; Z85.828 Personal history of other malignant neoplasm of skin; Z87.19 Personal history of other diseases of the digestive system
CPT/HCPCS: 36415; 71046; 80053; 83735; 83880; 84443; 84484; 85025; 85610; 85730; 87636; 93005; 96365; 96366; 99291